=== PATIENT | male | born 1975 | race African-American/Black ===

== ENCOUNTER 2019-05-25 19:25 | Emergency (ER) | payer MEDICAID ==
[~2019-05-25] VITALS: Ht 182.9 cm; Wt 91.0 kg
[2019-05-25] MEDS ORDERED: ONDANSETRON HCL 4MG/2ML INJ IV STA (21:15)
[2019-05-25] MEDS ORDERED: MORPHINE SULFATE 4 MG/ML CPJ (NOT FOR IM USE) IV STA (21:15)
[2019-05-25] MEDS ORDERED: BACITRACIN ZINC OINT UDPKT TOP ONE (21:15)
[2019-05-25] MEDS ORDERED: SODIUM CHLORIDE 0.9% 1,000 ML IV ONE (21:15)
[2019-05-25 21:52] LABS: BASOPHILS % 0.7 % (0.0-2.0); CHLORIDE 107 mEq/L (98-107); EOSINOPHILS % 0.6 % (0.0-5.0); HEMATOCRIT. 45.1 % (42.0-52.0); HEMOGLOBIN. 14.8 g/dL (14.0-18.0); LYMPHOCYTES % 19.8 % (20.0-50.0); MEAN CORPUSCULAR HEMOGLOBIN 33.1 pg (28.0-32.0); MEAN CORPUSCULAR VOLUME 100.9 fL (80.0-94.0); MEAN PLATELET VOLUME 8.6 fl (7.4-10.4); MONOCYTES % 7.9 % (2.0-8.0); PLATELET 261 x1000/uL (130-400); RED BLOOD CELL COUNT 4.46 mill/uL (4.7-6.1); RED CELL DISTRIBUTION WIDTH 14.1 % (11.6-14.6)
[2019-05-25 22:00] LABS: CREATINE KINASE 150 IU/L (39-308)
[2019-05-25 22:03] LABS: CREATINE KINASE MB FRACTION < 1.0 ng/mL (0.5-3.6)
[2019-05-25 22:16] LABS: ETHANOL BLOOD 357 mg/dL
[2019-05-26 00:24] VITALS: BP 116/81
== END 2019-05-26 04:39 | disposition home or self-care (01) ==
LOC: ER 19:25
DX: T51.0X1A Toxic effect of ethanol, accidental (unintentional), initial encounter (principal); G92 Toxic encephalopathy; F10.129 Alcohol abuse with intoxication, unspecified; Y90.8 Blood alcohol level of 240 mg/100 ml or more; S00.211A Abrasion of right eyelid and periocular area, initial encounter; S00.81XA Abrasion of other part of head, initial encounter; R03.0 Elevated blood-pressure reading, without diagnosis of hypertension; R73.9 Hyperglycemia, unspecified; X58.XXXA Exposure to other specified factors, initial encounter; Y93.89 Activity, other specified; Y92.89 Other specified places as the place of occurrence of the external cause; Z87.81 Personal history of (healed) traumatic fracture
CPT/HCPCS: 36415; 70450; 70486; 80053; 80320; 82550; 82553; 83880; 84443; 84484; 85025; 99284; J7030; G0480